=== PATIENT | female | born 1995 | race Caucasian/White ===

== ENCOUNTER 2024-11-29 18:46 | Emergency (ER) | payer OTHER ==
[~2024-11-29] VITALS: Ht 160 cm; Wt 113.4 kg
[2024-11-29 22:38] LABS: HEMATOCRIT 38.3 % (36.0-45.00); HEMOGLOBIN 12.9 g/dL (12.0-15.00); MEAN CELL VOLUME 87.6 fL (80.00-100.00); MEAN CORPUSCULAR HEMOGLOBIN 29.6 pg (27.00-32.0); MEAN CORPUSCULAR HGB CONC 33.8 g/dl (32.0-36.0); PLATELET COUNT 268 K/uL (150-450); RED BLOOD COUNT 4.37 M/uL (4.00-6.00); RED CELL DISTRIBUTION WIDTH 13.8 % (11.5-14.5)
[2024-11-29] MEDS ORDERED: IBU800 MG PO (23:19)
== END 2024-11-29 23:50 | disposition home or self-care (01) ==
LOC: ER 18:47
PROVIDERS: Preventive Medicine Public Health & General Preventive Medicine
DX: N92.0 Excessive and frequent menstruation with regular cycle (principal)